=== PATIENT | male | born 1975 | race Two or more races ===

== ENCOUNTER → 2016-10-09 | Outpatient (CLI) | payer OTHER ==
--- NOTE | 2016-10-09 09:13 | RAD ---
EXAM: Grayscale and color Doppler testicular sonogram. HISTORY: Left testicular pain. TECHNIQUE: Grayscale and color Doppler sonographic imaging of the testes with spectral waveform analysis was performed. COMPARISON: None. FINDINGS: The right testis measures 4.0 x 3.0 x 2.1 cm. The left testis measures 4.3 x 2.6 x 2.2 cm. There is normal symmetric blood flow within both testes. No focal testicular parenchymal lesion is seen. The epididymides are unremarkable. There is a small right hydrocele. IMPRESSION: 1. Small right hydrocele. 2. Otherwise, unremarkable testicular sonogram.
== END | disposition home or self-care (01) ==
LOC: US 07:52
PROVIDERS: ATTEND Nurse Practitioner Occupational Health
DX: N50.812 Left testicular pain (principal); N43.3 Hydrocele, unspecified
CPT/HCPCS: 76870